=== PATIENT | female | born 1980 | race Caucasian/White ===

== ENCOUNTER 2021-02-28 20:21 | Emergency (ER) | payer OTHER ==
[~2021-02-28] VITALS: Ht 167.6 cm; Wt 86.2 kg
[2021-02-28] MEDS ORDERED: BENTYL 10 MG CA10 M1 PO (20:31)
[2021-02-28] MEDS ORDERED: TRULANCE3 MG PO (20:31)
[2021-02-28] MEDS ORDERED: LEXAPRO20 MG PO (20:31)
[2021-02-28] MEDS ORDERED: NORCO5 PO ×3 (21:23→21:27)
[2021-02-28 21:37] VITALS: BP 124/70
== END 2021-02-28 21:37 | disposition home or self-care (01) ==
LOC: M.ERS 20:21
DX: S05.02XA Injury of conjunctiva and corneal abrasion without foreign body, left eye, initial encounter (principal); Z88.1 Allergy status to other antibiotic agents; Z79.899 Other long term (current) drug therapy; X58.XXXA Exposure to other specified factors, initial encounter; Y93.89 Activity, other specified; Y92.89 Other specified places as the place of occurrence of the external cause; Y99.9 Unspecified external cause status